=== PATIENT | female | born 1985 | race Two or more races ===

== ENCOUNTER 2019-03-04 07:33 | Emergency (ER) | payer SELFPAY ==
[~2019-03-04] VITALS: Ht 157.5 cm; Wt 74.4 kg
[2019-03-04 07:40] VITALS: BP 105/78
[2019-03-04] MEDS ORDERED: ACETAMINOPHEN/CODEINE#3 (300/30mg) TAB PO ONE (08:45)
== END 2019-03-04 09:46 | disposition home or self-care (01) ==
LOC: ER 07:33
DX: S01.01XA Laceration without foreign body of scalp, initial encounter (principal); J45.909 Unspecified asthma, uncomplicated; W22.8XXA Striking against or struck by other objects, initial encounter; Y93.89 Activity, other specified; Y99.8 Other external cause status; Y92.89 Other specified places as the place of occurrence of the external cause
CPT/HCPCS: 12001; 70450